=== PATIENT | female | born 1945 | race Caucasian/White ===

== ENCOUNTER 2020-04-04 13:44 | Outpatient (CLI) | payer MEDICARE, SELFPAY ==
--- NOTE | 2020-04-04 13:52 | MM_ITS ---
WS: [id number] BILATERAL SCREENING DIGITAL MAMMOGRAM WITH CAD HISTORY: SCREENING COMPARISON: 11/26/2018 and 08/19/2017 Bilateral CC and MLO views submitted. Computer aided detection analyzed. Breast composition: There are scattered areas of fibroglandular density. No suspicious masses, microc alcifications or architectural distortion. Benign calcifications in each breast. MM/[place] [id number] IMPRESSION: BI-RADS: 2-Benign FOLLOW UP: 1 Year Follow-up
== END 2020-04-04 13:45 | disposition home or self-care (01) ==
LOC: RADSHAW 13:51
PROVIDERS: PCP Internal Medicine; Visit Provider Internal Medicine
DX: Z12.31 Encounter for screening mammogram for malignant neoplasm of breast (principal)
CPT/HCPCS: 77067

== ENCOUNTER 2021-04-16 08:10 | Outpatient (CLI) | payer MEDICARE, SELFPAY ==
--- NOTE | 2021-04-16 08:15 | MM_ITS ---
WS: [id number] BILATERAL DIGITAL SCREENING MAMMOGRAPHY WITH CAD CLINICAL INFORMATION: SCREENING HISTORY: Screening mammogram. No current complaints. COMPARISON: April 04, 2020 TECHNIQUE: Bilateral CC and MLO views. FINDINGS: Scattered fibroglandular densities bilaterally. Stable benign punctate and clustered calcifications. No suspicious focal mass, asymmetry, calcifications, or architectural distortion. No evidence of jeff gnancy. MM/[place] [id number] IMPRESSION: BI-RADS: 2-Benign FOLLOW UP: 1 Year Follow-up Recommend return to annual screening mammography.
== END 2021-04-16 08:11 | disposition home or self-care (01) ==
PROVIDERS: PCP Internal Medicine; Visit Provider Internal Medicine
DX: Z12.31 Encounter for screening mammogram for malignant neoplasm of breast (principal)
CPT/HCPCS: 77067

== ENCOUNTER 2022-05-28 08:11 | Outpatient (CLI) | payer MEDICARE, SELFPAY ==
--- NOTE | 2022-05-28 08:18 | MM_ITS ---
WS: [id number] Exam: [id number] Date/Time of Exam: 05/28/2022 8:28 AM Reason For Exam: SCREENING VIEWS: MLO and CC views both breasts. 3D digital tomosynthesis is also included in this exam. Comparison made with prior exam of 06/08/2014, 06/17/2016, 08/19/2017, 11/26/2018, 04/04/2020, 04/16/2021. . Findings: There was no sign of mass, architectural distortion or suspicious calcification in either breast. Sc attered fibroglandular densities MM/[place] [id number] Impression: BI-RADS: 2-Benign FOLLOW-UP: 1 Year Follow-up This mammogram was also analyzed by the Computer Aided Detection System [employer].
== END 2022-05-28 08:12 | disposition home or self-care (01) ==
LOC: RAD 08:11
PROVIDERS: PCP Internal Medicine; Visit Provider Internal Medicine
DX: Z12.31 Encounter for screening mammogram for malignant neoplasm of breast (principal)
CPT/HCPCS: 77063; 77067

== ENCOUNTER 2023-05-29 13:10 | Outpatient (CLI) | payer MEDICARE, SELFPAY ==
--- NOTE | 2023-05-29 13:18 | MM_ITS ---
WS: [id number] BILATERAL SCREENING DIGITAL TOMOSYNTHESIS MAMMOGRAM WITH CAD HISTORY: SCREENING COMPARISON: 05/28/2022 and 04/16/2021 Bilateral CC and MLO views with tomosynthesis and synthetic mammography submitted. Computer aided det ection analyzed. Breast composition: There are scattered areas of fibroglandular density. No suspicious masses, microc alcifications or architectural distortion. Benign calcifications in each breast. IMPRESSION: MM/[place] [id number] BI-RADS: 2-Benign FOLLOW UP: 1 Year Follow-up
== END 2023-05-29 13:11 | disposition home or self-care (01) ==
PROVIDERS: PCP Internal Medicine; Visit Provider Internal Medicine
DX: Z12.31 Encounter for screening mammogram for malignant neoplasm of breast (principal)
CPT/HCPCS: 77063; 77067

== ENCOUNTER 2024-05-31 15:38 | Outpatient (CLI) | payer MEDICARE, SELFPAY ==
--- NOTE | 2024-05-31 15:42 | MM_ITS ---
WS: [id number] BILATERAL 3D TOMOSYNTHESIS DIGITAL SCREENING MAMMOGRAPHY WITH CAD CLINICAL INFORMATION: SCREENING HISTORY: Screening mammogram. No current complaints. COMPARISON: 2022 TECHNIQUE: Bilateral CC and MLO views. FINDINGS: Scattered fibroglandular densities bilaterally. No suspicious focal mass, asymmetry, calcifications, or architectural distortion. No evidence of malignancy. Incidental punctate calcifications. Vascular calcification. MM/MM scr tomosynthesis [id number] IMPRESSION: DENSITY: There are scattered areas of fibroglandular density. BI-RADS: 2 - Benign. FOLLOW UP: 1 Year Follow-up Recommend return to annual screening mammography.
== END 2024-05-31 15:39 | disposition home or self-care (01) ==
PROVIDERS: PCP Internal Medicine; Visit Provider Internal Medicine
DX: Z12.31 Encounter for screening mammogram for malignant neoplasm of breast (principal); R92.323 Mammographic fibroglandular density, bilateral breasts; R92.1 Mammographic calcification found on diagnostic imaging of breast
CPT/HCPCS: 77063; 77067

== ENCOUNTER 2024-12-16 13:15 | Outpatient (CLI) | payer MEDICARE, SELFPAY ==
--- NOTE | 2024-12-16 13:20 | XR_ITS ---
WS: [id number] SCREENING DEXA SCAN [employer] CLINICAL INFORMATION: SCREENING FOR OSTEOPOROSIS COMPARISON: None. FINDINGS: The L1-L4 bone mineral density measures 1.219 g/cm2. This corresponds to a T score score of 0.3 and Z score of 2.1. Left femoral neck bone mineral density measures 0.811 g/cm2. This corresponds to a T score of -1.6 and Z score of 0.4. Right femoral neck bone mineral density measures 0.789 g/cm2. This corresponds to a T score -1.7of and Z score of 0.2. Mean femoral neck bone mineral density measures 0.800 g/cm2. This corresponds to a T score of -1.6 and Z score of 0.3. XR/XR DEXA axial skeleton* [id number] IMPRESSION: Normal bone mineralization lumbar spine. Osteopenia femoral necks. Patient's FRAX calculated 10 year probability for major osteoporotic fracture i s 24.9% and osteoporotic hip fracture is 14.6%.
== END 2024-12-16 13:16 | disposition home or self-care (01) ==
LOC: RAD 13:16
PROVIDERS: PCP Internal Medicine; Visit Provider Nurse Practitioner Family
DX: Z13.820 Encounter for screening for osteoporosis (principal); M81.0 Age-related osteoporosis without current pathological fracture; M85.852 Other specified disorders of bone density and structure, left thigh; M85.851 Other specified disorders of bone density and structure, right thigh
CPT/HCPCS: 77080